=== PATIENT | female | born 1950 | race Caucasian/White ===

== ENCOUNTER 2021-03-03 11:01 | Inpatient (IN) | payer MEDICARE ==
[~2021-03-03] VITALS: Ht 154.9 cm; Wt 49.0 kg
--- NOTE | 2021-03-03 11:20 | NUR ---
CALLED [facility]US[facility] E[facility]ON FOR PSYCH EVAL, PER ELKE YEUNG RECOMMENDATION.
[2021-03-03] MEDS ORDERED: AMLO10TA59 PO (11:28)
[2021-03-03] MEDS ORDERED: MULT-594 PO (11:28)
[2021-03-03] MEDS ORDERED: PARO30TA4 PO (11:28)
[2021-03-03] MEDS ORDERED: LISI40TA13 PO (11:28)
[2021-03-03] MEDS ORDERED: FOLI1TAB94 PO (11:28)
[2021-03-03] MEDS ORDERED: ASPI81TA31 PO (11:28)
[2021-03-03] MEDS ORDERED: GABA-532 PO (11:28)
[2021-03-03] MEDS ORDERED: LORAZEPAM 0.5 MG TABLET PO ONE (11:30)
--- NOTE | 2021-03-03 11:30 | NUR ---
PINKY BIAG AT BEDSIDE FOR PSYCH EVAL.
[2021-03-03] MEDS ORDERED: LORAZEPAM 0.5 MG TABLET ONE (11:35)
--- NOTE | 2021-03-03 11:53 | NUR ---
LUNCH TRAY PROVIDED FOR PT. PT EATING WITH GOOD APETITE
--- NOTE | 2021-03-03 14:05 | NUR ---
transfered pt to mhu in stable condition.
[2021-03-03] MEDS ORDERED: MAGNESIUM HYDROXIDE 30 ML LIQUID UDC PO PRN (14:30)
[2021-03-03] MEDS ORDERED: LORAZEPAM 0.5 MG TABLET PO PRN (14:30)
[2021-03-03] MEDS ORDERED: TEMAZEPAM 7.5 MG CAPSULE PO PRN (14:30)
[2021-03-03] MEDS ORDERED: BLOOD SUGAR DIAGNOSTIC 1 EACH STRIP VI ONE (14:30)
[2021-03-03] MEDS ORDERED: ACETAMINOPHEN 325 MG TABLET PO PRN (14:30)
[2021-03-03 14:44] VITALS: BP 130/65
--- NOTE | 2021-03-03 16:03 | NUR ---
patient lives with daughter at home, placed on 5150 for DTS due to she is having suicidal ideation with a plan to cut her wrist with a knife. poor insight tried to minimize her behavior and blame her alcohol use. Patient is alert, oriented x4, no sob, resp even nonlabored, skin warm and dry to touch, no skin issues noted, admitted to GPS for suicidal thoughts with plan to cut her wrist however patient denied any plan for now patient stated she feels to cut her wrist when she drinks too much alcohol, denies hallucinations,denied delusions, continue to monitor according to GPS unit protocol.
[2021-03-03] MEDS: GABAPENTIN 300 MG CAPSULE PO SCH ×2 (17:14→17:44)
[2021-03-03] MEDS ORDERED: GABAPENTIN 100 MG CAPSULE PO SCH (18:00)
[2021-03-03 19:58] VITALS: BP 116/64
[2021-03-04] MEDS: PANTOPRAZOLE SODIUM 40 MG TABLET.DR PO SCH (06:36)
[2021-03-04 07:24] LABS: BASOPHILS % (AUTO) 0.5 % (0.0-2.0); EOSINOPHILS # (AUTO) 0.1 K/uL (0.0-0.7); EOSINOPHILS % (AUTO) 2.1 % (0.0-7.0); HEMATOCRIT 36.1 % (31.2-41.9); HEMOGLOBIN 12.2 g/dL (10.9-14.3); LYMPHOCYTES # (AUTO) 1.7 K/uL (20.0-40.0); LYMPHOCYTES % (AUTO) 25.1 % (20.5-51.5); MEAN CORPUSCULAR HEMOGLOBIN 31.9 uug (24.7-32.8); MEAN CORPUSCULAR HGB CONC 34 g/dL (32.3-35.6); MEAN CORPUSCULAR VOLUME 94.7 fL (75.5-95.3); MONOCYTES # (AUTO) 1.1 K/uL (2.0-10.0); MONOCYTES % (AUTO) 16.3 % (0.0-11.0); NEUTROPHILS # (AUTO) 3.9 K/uL (1.8-8.9); PLATELET COUNT (AUTO) 137 K/uL (179-408); RED BLOOD CELL COUNT(AUTO) 3.81 MIL/uL (3.63-4.92); WHITE BLOOD COUNT (AUTO) 6.9 K/uL (3.8-11.8)
[2021-03-04 07:30] VITALS: BP 161/82
[2021-03-04 07:41] LABS: BILIRUBIN,TOTAL 0.5 mg/dL (0.2-1.0); CREATININE 0.7 mg/dL (0.6-1.3); POTASSIUM 4.5 mmol/L (3.5-5.1); TOTAL PROTEIN, SERUM 6.2 g/dL (6.4-8.2)
[2021-03-04] MEDS ORDERED: FOLIC ACID 1 MG TABLET PO SCH (09:00)
[2021-03-04] MEDS: NICOTINE 21 MG/24HR PATCH TD SCH (09:27)
[2021-03-04] MEDS: ASPIRIN 81 MG TAB.CHEW PO SCH (09:27)
[2021-03-04] MEDS: FOLIC ACID 1 MG TABLET PO SCH (09:27)
[2021-03-04] MEDS: MULTIVITAMINS,THERAPEUTIC TABLET PO SCH (09:28)
[2021-03-04] MEDS: THIAMINE HCL 100 MG TABLET PO SCH (09:28)
[2021-03-04] MEDS: AMLODIPINE 10 MG TABLET PO SCH (09:28)
[2021-03-04] MEDS: LISINOPRIL 20 MG TABLET PO SCH (09:28)
[2021-03-04] MEDS ORDERED: LORAZEPAM 1 MG TABLET PO PRN (09:30)
[2021-03-04] MEDS ORDERED: LORAZEPAM 0.5 MG TABLET PO PRN (09:30)
[2021-03-04] MEDS ORDERED: TRAZODONE 50 MG TABLET PO PRN (09:30)
[2021-03-04] MEDS: DULOXETINE 60 MG CAPSULE.DR PO SCH (11:51)
--- NOTE | 2021-03-04 12:46 | NUR ---
Firearms Report: [employer] completed and submitted a [employer] firearms report for 5150 danger to herself certifications. A copy of report has been placed in patient chart.
--- NOTE | 2021-03-04 14:29 | NUR ---
FRANTZ Initial Discharge Plan: Patient currently resides at home (back house) [address] [place] [address] [place], [place] [address] ([phone]) with her daughter Grace Howell ([phone]). Patient would like to return home upon discharge. FRANTZ will continue to work with patient, family, and MD to ensure a safe and proper discharge plan.
--- NOTE | 2021-03-04 14:30 | NUR ---
Brief Substance Abuse Intervention: Patient was provided with a brief substance abuse intervention for alcohol abuse and referred to the following substance abuse programs: [facility] Substance Abuse Self-helpline ([phone]); [facility] [address] [place] [address] ([phone]); [facility] [address] [facility] [address] ([phone]); [facility] ([phone]); [facility] ([phone]); [facility] ([phone]); [facility] ([phone]).
--- NOTE | 2021-03-04 14:32 | NUR ---
FRANTZ Family Contact: FRANTZ spoke with patient's daughter Grace Howell ([phone]) and discussed treatment and discharge plan. Grace stated that she has set up AA meetings twice a week and a therapist for the patient. Grace stated she will bean picker the patient upon discharge to take her back home.
[2021-03-04 15:16] LABS: EOSINOPHILS % (MANUAL) 2 % (0-8); LYMPHOCYTES % (MANUAL) 25 % (20-40); MONOCYTES % (MANUAL) 15 % (2-10); NEUTROPHILS % (MANUAL) 58 % (42-75)
[2021-03-04 15:42] VITALS: BP 104/47
[2021-03-04] MEDS: GABAPENTIN 300 MG CAPSULE PO SCH (17:16)
[2021-03-04 20:07] VITALS: BP 132/71
[2021-03-04] MEDS: MAG HYDROX/AL HYDROX/SIMETH 30 ML LIQUID UDC PO PRN (20:41)
--- NOTE | 2021-03-05 01:41 | NUR ---
RECEIVED PATIENT IN ACTIVITY ROOM INTERACTING WITH PEERS.A/O X3. STILL MINIMIZE HER BEHAVIOR. SHE SAYS ITS NOT A BIG DEAL REGARDING HER DRINKING. SHE DENIES ANY SUICIDAL IDEATION. NOTED DEPRESSED. VISUAL CHECKS MADE ON HER FOR SAFETY. WILL CONTINUE TO MONITOR.
[2021-03-05] MEDS: PANTOPRAZOLE SODIUM 40 MG TABLET.DR PO SCH (06:35)
[2021-03-05] MEDS: MAG HYDROX/AL HYDROX/SIMETH 30 ML LIQUID UDC PO PRN (06:45)
--- NOTE | 2021-03-05 06:48 | NUR ---
SLEPT FOR 5:30 HOURS
[2021-03-05 07:30] VITALS: BP 123/58
[2021-03-05] MEDS: FOLIC ACID 1 MG TABLET PO SCH (09:00)
[2021-03-05] MEDS: AMLODIPINE 10 MG TABLET PO SCH (09:00)
[2021-03-05] MEDS: MULTIVITAMINS,THERAPEUTIC TABLET PO SCH (09:00)
[2021-03-05] MEDS: NICOTINE 21 MG/24HR PATCH TD SCH (09:00)
[2021-03-05] MEDS: ASPIRIN 81 MG TAB.CHEW PO SCH (09:00)
[2021-03-05] MEDS: DULOXETINE 60 MG CAPSULE.DR PO SCH (09:00)
[2021-03-05] MEDS ORDERED: MULTIVITAMINS,THERAPEUTIC TABLET PO SCH (09:00)
[2021-03-05] MEDS: THIAMINE HCL 100 MG TABLET PO SCH (09:01)
[2021-03-05] MEDS: LISINOPRIL 20 MG TABLET PO SCH (09:01)
[2021-03-05 13:00] VITALS: BP 126/56
--- NOTE | 2021-03-05 13:20 | NUR ---
FRANTZ Coordination of Care: FRANTZ spoke with patient's daughter, Janet ([phone]) regarding aftercare appointments for psychaitrist and primary physician. Patient sees a psychiatrist at [facility] [address], [address] ([phone]). Janet stated that she will follow up with aftercare appointments and make them herself for the patient. Janet stated she takes the patient to her doctor's appointments. Addendum: 03/05/21 at 1323 by KENYETTA PONCE DISREGARD, INCORRECT PATIENT NOTE ENTERED
--- NOTE | 2021-03-05 13:35 | NUR ---
FRANTZ Coordination of Care: FRANTZ spoke with patients daughter Grace ([phone]) who stated that she has set up AA meetings twice a week and a therapist for the patient to visit her at home. Grace stated that she will follow up with the patients primary physician Dr. Mary Jane Manuel MD [address] [place] [address] ([phone]). For outpatient mental health resources patient is referred to [facility] ([phone]). Patient was provided with a brief substance abuse intervention for alcohol abuse and referred to [facility] ([phone]), National Suicide Prevention Lifeline ([phone]), [facility] ([phone]), [facility] ([phone]), [facility] National Helpline ([phone]).
[2021-03-05] MEDS: LOPERAMIDE HCL 2 MG CAPSULE PO PRN ×2 (16:58→21:33)
[2021-03-05] MEDS: GABAPENTIN 300 MG CAPSULE PO SCH (17:02)
[2021-03-05 20:03] VITALS: BP 155/63
[2021-03-06] MEDS: LOPERAMIDE HCL 2 MG CAPSULE PO PRN ×2 (05:54→11:07)
[2021-03-06] MEDS: PANTOPRAZOLE SODIUM 40 MG TABLET.DR PO SCH (06:02)
--- NOTE | 2021-03-06 06:21 | NUR ---
GPS: Pt.slept for 7 hrs.last night. Less depressed when asked and denies wanting to harm self. Re-assured prn. Immodium 2mg 1 tab given for loose stool as ordered. Fluids encouraged. Will continue to monitor.
[2021-03-06 07:30] VITALS: BP 171/67
--- NOTE | 2021-03-06 07:30 | NUR ---
Received report from RONEY Farooq. All questions, comments, and concerns were addressed. Received patient awake, sitting in her assigned room. Bed is in low and locked position.
[2021-03-06] MEDS: ASPIRIN 81 MG TAB.CHEW PO SCH (08:00)
[2021-03-06] MEDS: FOLIC ACID 1 MG TABLET PO SCH (08:00)
[2021-03-06] MEDS: DULOXETINE 60 MG CAPSULE.DR PO SCH (08:00)
[2021-03-06] MEDS: MULTIVITAMINS,THERAPEUTIC TABLET PO SCH (08:00)
[2021-03-06] MEDS: THIAMINE HCL 100 MG TABLET PO SCH (08:00)
[2021-03-06] MEDS: LISINOPRIL 20 MG TABLET PO SCH (08:01)
[2021-03-06] MEDS: AMLODIPINE 10 MG TABLET PO SCH (08:01)
[2021-03-06] MEDS: NICOTINE 21 MG/24HR PATCH TD SCH (08:01)
[2021-03-06] MEDS ORDERED: ENSURE ENLIVE (VAN) 240 ML LIQUID PO SCH (09:00)
--- NOTE | 2021-03-06 09:34 | NUR ---
SW Discharge Note: Patient is discharging home today (AMA) Against Medical Advice [address] [facility] [place] [address] ([phone]). Patients daughter, Grace Howell ([phone]) is aware and agreeable with discharge plan. Patients daughter, Meredith Calderon ([phone]) will be picking up the patient today at 12PM. Patient is alert and oriented x4 and is aware and agreeable with discharge plan. Patient denies suicidal or homicidal ideation. Patient presents with euthymic mood and congruent affect. Patients daughter Grace stated that she has set up AA meetings twice a week and a therapist for the patient to visit her at home. Grace stated that she will follow up with the patients primary physician Dr. Mary Jane Manuel MD [address] [place] [id number] ([phone]). For outpatient mental health resources patient is referred to [facility] ([phone]). Patient was provided with a brief substance abuse intervention for alcohol abuse and referred to [facility] ([phone]), National Suicide Prevention Lifeline ([phone]), [facility] ([phone]), [facility] ([phone]), [facility] National Helpline ([phone]).
[2021-03-06 10:27] VITALS: BP 128/59
[2021-03-06] MEDS ORDERED: CLONIDINE HCL 0.1 MG TABLET PO PRN (10:30)
--- NOTE | 2021-03-06 12:15 | NUR ---
DISCHARGE NOTE: Patient discharged Against Medical Advice (AMA) back home to [address] [place] [address], [place] [address] ([phone]). Patients daughter, Garce Howell ([phone]), picked up patient and will transport her back home in a private car. Patient was educated about leaving AMA and verbalized understanding. Patient provided with discharge education about importance of follow up care with psychiatrist and primary care physician, educated about resources provided to patient about mental health services in her area, she is able to verbalize understanding. Patient states she has the prescribed psychotropic medication (Cymbalta) at home and will see her primary care physician for further prescriptions. Patient's belongings and valuables inventoried with patient and returned. Patient denies suicidal and homicidal ideation. Patient's skin is intact. Patient is alert and oriented in reality.
== END 2021-03-06 12:15 | disposition left against medical advice (07) | DRG 885 ==
LOC: ER 11:01 → GPS 14:00
PROVIDERS: ADMIT Psychiatry & Neurology Psychiatry; ATTEND Nurse Practitioner Acute Care
DX: F33.2 Major depressive disorder, recurrent severe without psychotic features (principal); R45.851 Suicidal ideations; E44.1 Mild protein-calorie malnutrition; F23 Brief psychotic disorder; F17.210 Nicotine dependence, cigarettes, uncomplicated; G25.81 Restless legs syndrome; F10.20 Alcohol dependence, uncomplicated; E88.09 Other disorders of plasma-protein metabolism, not elsewhere classified; E78.00 Pure hypercholesterolemia, unspecified; E78.5 Hyperlipidemia, unspecified; I10 Essential (primary) hypertension; Z68.20 Body mass index [BMI] 20.0-20.9, adult
CPT/HCPCS: 36415; 70030-TC; 71045; 85025; 93005; A4663